=== PATIENT | female | born 1995 | race Caucasian/White ===

== ENCOUNTER 2020-11-05 21:40 | Emergency (ER) | payer OTHER ==
[2020-11-05] MEDS ORDERED: TORAdol 30 mg Injection ONE (22:33)
[2020-11-05] MEDS ORDERED: PEN-VEE K ONE (22:34)
[2020-11-05] MEDS: PEN-VEE K PO ONE (22:40)
[2020-11-05] MEDS: TORAdol 30 mg Injection IM ONE (22:40)
--- NOTE | 2020-11-05 23:37 | ERPHSYRPT ---
- History of Present Illness Time Seen by Provider: 11/05/20 22:30 Source: patient Exam Limitations: no limitations Patient Subjective Stated Complaint: pt c/o pain in rt lower jaw since yesterday Triage Nursing Assessment: pt alert and oreinted, answers questions approp. skin pink warm and dry. respirations nonlabored with lungs cta. skin pink warm and dry. multiple broken teeth noted to rt lower jaw. Physician History: Patient is a 25-year-old female presents to our ED with complaints of dental pain. Symptoms started yesterday. However swelling started today. No trauma no fever. No headache. Pain described as an ache that is well localized. Pain worse with mastication. Pain improved with rest. Patient is otherwise healthy. She voices no other complaints or concerns at this time. Timing/Duration: day(s) (2 days) Severity: moderate Modifying Factors: Improves With: nothing Associated Symptoms: denies symptoms, No nausea, No vomiting, No heartburn, No chest pain, No headaches, No syncope, No seizure, No weakness Allergies/Adverse Reactions: No Known Drug Allergies Allergy (Verified 11/05/20 22:29) Hx Tetanus, Diphtheria Vaccination/Date Given: No Hx Influenza Vaccination/Date Given: No Hx Pneumococcal Vaccination/Date Given: No Immunizations Up to Date: No Travel Risk - International Travel Have you traveled outside of the country in past 3 weeks: No - Coronavirus Screening Are you exhibiting any of the following symptoms?: No Close contact with a COVID-19 positive Pt in past 14-21 Days: No - Vaccine Status Have you recieved a Covid-19 vaccination: No - Review of Systems Constitutional: No Symptoms, No Fever, No Chills Eyes: No Symptoms Ears, Nose, & Throat: No Symptoms Respiratory: No Symptoms, No Cough, No Dyspnea Cardiac: No Symptoms, No Chest Pain, No Edema, No Syncope Abdominal/Gastrointestinal: No Symptoms, No Abdominal Pain, No Nausea, No Vomiting, No Diarrhea Genitourinary Symptoms: No Symptoms, No Dysuria Musculoskeletal: No Symptoms, No Back Pain, No Neck Pain Skin: No Symptoms, No Rash Neurological: No Symptoms, No Dizziness, No Focal Weakness, No Sensory Changes Psychological: No Symptoms Endocrine: No Symptoms Hematologic/Lymphatic: No Symptoms Immunological/Allergic: No Symptoms All Other Systems: Reviewed and Negative - Past Medical History Pertinent Past Medical History: No - Past Surgical History Past Surgical History: No - Social History Smoking Status: Never smoker Exposure to second hand smoke: Yes Drug Use: none Patient Lives Alone: No - Female History Hx Last Menstrual Period: 4 days Hx Now: No - Nursing Vital Signs Nursing Vital Signs: Initial Vital Signs Temperature 98.3 F 11/05/20 22:17 Pulse Rate 86 11/05/20 22:17 Respiratory Rate 18 11/05/20 22:17 Blood Pressure 132/86 11/05/20 22:17 O2 Sat by Pulse Oximetry 97 11/05/20 22:17 Pain Scale Pain Intensity 9 - Physical Exam General Appearance: no apparent distress, alert Eye Exam: PERRL/EOMI, eyes nml inspection Ears, Nose, Throat Exam: normal ENT inspection, TMs normal, pharynx normal, moist mucous membranes, other (Carious teeth numbers 29,30 and 31. There is swelling at the adjacent gingiva consistent with an abscess. Otherwise no intraoral lesions. Uvula at midline line. No sublingual masses. No Dayna's angina observed.) Neck Exam: normal inspection, non-tender, supple, full range of motion Respiratory Exam: normal breath sounds, lungs clear, No respiratory distress Cardiovascular Exam: regular rate/rhythm, normal heart sounds, normal peripheral pulses Gastrointestinal/Abdomen Exam: soft, normal bowel sounds, No tenderness, No mass Back Exam: normal inspection, normal range of motion, No CVA tenderness, No vertebral tenderness Extremity Exam: normal inspection, normal range of motion, pelvis stable Neurologic Exam: alert, oriented x 3, cooperative, normal mood/affect, sensation nml, No motor deficits Skin Exam: normal color, warm, dry, No rash Lymphatic Exam: No adenopathy SpO2 Interpretation: normal SpO2: 97 O2 Delivery: Room Air - Course Nursing assessment & vital signs reviewed: Yes Ordered Tests: Medication Summary Discontinued Medications Generic Name Dose Route Start Last Admin Trade Name Freq PRN Reason Stop Dose Admin Ketorolac Tromethamine 30 mg 11/05/20 22:24 11/05/20 22:40 Toradol 30 Mg Injection IM 11/05/20 22:25 30 mg STAT ONE Administration Ketorolac Tromethamine Confirm 11/05/20 22:33 Toradol 30 Mg Injection Administered 11/05/20 22:34 Dose 30 mg .ROUTE .STK-MED ONE Penicillin V Potassium 500 mg 11/05/20 22:24 11/05/20 22:40 Pen-Vee K PO 11/05/20 22:25 500 mg STAT ONE Administration Penicillin V Potassium Confirm 11/05/20 22:34 Pen-Vee K Administered 11/05/20 22:35 Dose 500 mg .ROUTE .STK-MED ONE - Progress Progress: improved Progress Note: Patient reassessed. Pain improved after administration of Toradol and penicillin VK. Patient adamantly the night the possibility of . Patient declined a urine . Patient has a dental abscess with carious teeth. A prescription for penicillin VK and Toradol was forwarded the patient's pharmacy. Patient will schedule an appointment with her dentist. A work note was provided. Patient states she is ready for discharge. Will discharge at this time. She voices no other complaints concerns at this time. 11/05/20 23:44 Counseled pt/family regarding: diagnosis, need for follow-up - Departure Departure Disposition: Home Clinical Impression: Dental abscess, Pain, dental, Carious teeth Condition: Stable Critical Care Time: No Referrals: YAMEL FUENTES [Primary Care Provider] - Instructions: Tooth Abscess (DC) Additional Instructions: Discharge/Care Plan SUMANSANTOS RICCI was seen on 11/05/20 in the Emergency Room. The patient was counseled regarding Diagnosis,Lab results, Imaging studies, need for follow up and when to return to the Emergency Room. Prescriptions given: Discharge Note I have spoken with the patient and/or caregivers. I have explained the patient's condition, diagnosis and treatment plan based on the information available to me at this time. I have answered the patient's and/or caregiver's questions and addressed any concerns. The patient and/or caregivers have as good understanding of the patient's diagnosis, condition and treatment plan as can be expected at this point. The vital signs have been stable. The patient's condition is stable and appropriate for discharge from the emergency department. The patient will pursue further outpatient evaluation with the primary care physician or other designated or consulting physician as outlined in the discharge instructions. The patient and/or caregivers are agreeable to this plan of care and follow-up instructions have been explained in detail. The patient and/or caregivers have received these instruction. The patient/and or caregivers are aware that any significant change in condition or worsening of symptoms should prompt an immediate return to this or the closest emergency department or call 911. Forms: Work/School Release Form Prescriptions: Penicillin V Potassium 500 mg PO QID 7 Days #28 tablet Ketorolac Tromethamine [Toradol] 10 mg PO TID 5 Days #15 tablet
[2020-11-05 23:51] VITALS: BP 128/74; PULSE 75; O2SAT 99
== END 2020-11-05 23:51 | disposition home or self-care (01) ==
LOC: ED 21:40
DX: K04.7 Periapical abscess without sinus (principal); K02.9 Dental caries, unspecified
CPT/HCPCS: 96372; 99283; J1885; A9270-GY